=== PATIENT | male | born 1995 | race Two or more races ===

== ENCOUNTER 2023-03-16 16:13 | Emergency (ER) | payer OTHER ==
[~2023-03-16] VITALS: Ht 188 cm; Wt 160.1 kg
--- NOTE | 2023-03-16 16:40 | NUR ---
pt was seen due to shortness of breath in deep inspiration x 6mons with occassional hemOptysis. no trauma nor injury noted.consulted a MD AND REQUESTED FOR CXR. VS ARE WNL. HE IS IN A FACILITY FOR DETOXIFICATION
--- NOTE | 2023-03-16 17:01 | NUR ---
RELATIVE GAVE A NUMBER TO CALL FOR HIM TO BE PICK-UP WHEN DISCHARGE. [phone], .
--- NOTE | 2023-03-16 17:19 | NUR ---
IV INSERTED LT AC. DRAW BLD AND SENT TO LAB
[2023-03-16 17:23] LABS: BASOPHILS % (AUTO) 0.5 % (0.0-2.0); EOSINOPHILS % (AUTO) 1.5 % (0.0-6.0); HEMATOCRIT 47 % (39-51); HEMOGLOBIN 15.7 g/dL (13.5-17.5); LYMPHOCYTES # (AUTO) 2.5 K/uL (0.8-4.8); LYMPHOCYTES % (AUTO) 42.6 % (20.0-44.0); MEAN CORPUSCULAR HGB CONC 33 g/dl (31.0-36.0); MEAN CORPUSCULAR VOLUME 87 fL (80-96); MONOCYTES # (AUTO) 0.5 K/uL (0.1-1.30); MONOCYTES % (AUTO) 9.2 % (2.0-12.0); NEUTROPHILS # (AUTO) 2.8 K/uL (1.8-8.9); NEUTROPHILS % (AUTO) 46.2 % (43.0-81.0); PLATELET COUNT (AUTO) 233 K/uL (150-450); RED BLOOD CELL COUNT(AUTO) 5.38 MIL/uL (4.5-6.0)
[2023-03-16 17:30] LABS: CALCIUM, SERUM 9.1 mg/dL (8.5-10.1); CARBON DIOXIDE 29 mmol/L (21-32); CHLORIDE 102 mmol/L (98-107); CREATININE 0.9 mg/dL (0.6-1.3); GLUCOSE 96 mg/dL (74-106); SODIUM SERUM 139 mmol/L (136-145); UREA NITROGEN, BLOOD 12 mg/dL (7-18)
--- NOTE | 2023-03-16 19:25 | NUR ---
CALLED [phone] SPOKE WITH DIDI. WILL SEND A MANAGER CONTRACTING, ETA 15-20 MINS
--- NOTE | 2023-03-16 19:28 | NUR ---
IV removed. Catheter intact and site benign. Pressure and 4x4 applied to site. No bleeding noted.Patient discharged to home in stable condition. Written and verbal after care instructions given. Patient verbalizes understanding of instruction.
[2023-03-16 20:17] VITALS: BP 135/65
== END 2023-03-16 19:30 | disposition home or self-care (01) ==
LOC: ER 16:24
DX: S42.021A Displaced fracture of shaft of right clavicle, initial encounter for closed fracture (principal); R04.2 Hemoptysis; F17.200 Nicotine dependence, unspecified, uncomplicated; Z90.89 Acquired absence of other organs; X58.XXXA Exposure to other specified factors, initial encounter; Y93.89 Activity, other specified; Y92.89 Other specified places as the place of occurrence of the external cause; Y99.8 Other external cause status
CPT/HCPCS: 36415; 71045-TC; 80048-TC; 84484-TC; 85025-TC; 85378-TC